=== PATIENT | male | born 1965 | race African-American/Black ===

== ENCOUNTER 2018-08-26 13:27 | Emergency (ER) | payer SELFPAY | END 2018-08-26 13:58 | disposition home or self-care (01) | LOC: ERS 13:27 | DX: M72.2 Plantar fascial fibromatosis (principal); E11.9 Type 2 diabetes mellitus without complications; I10 Essential (primary) hypertension | CPT/HCPCS: 99283 ==

== ENCOUNTER 2018-08-30 16:51 | Emergency (ER) | payer BC, SELFPAY | END 2018-08-30 18:10 | disposition home or self-care (01) | LOC: ERS 16:51 | DX: M72.2 Plantar fascial fibromatosis (principal); I10 Essential (primary) hypertension; E11.9 Type 2 diabetes mellitus without complications; Z79.899 Other long term (current) drug therapy; Z79.84 Long term (current) use of oral hypoglycemic drugs | CPT/HCPCS: 99283 ==